=== PATIENT | male | born 1945 | race Caucasian/White ===

== ENCOUNTER 2018-05-19 14:30 | Emergency (ER) | payer OTHER ==
--- NOTE | 2018-05-19 14:58 | ED Physician Documentation ---
PD HPI HEENT - Stated complaint Stated Complaint: R SIDE LUMP NECK-PX/EAR NUMB - Chief complaint Chief Complaint: Heent - History obtained from History obtained from: Patient - History of Present Illness Timing - onset: How many weeks ago (2.5) Timing - details: Abrupt onset, Still present, Waxing and waning Pain level max: 0 Pain level now: 0 Location: Other (right side of neck/jaw) Improves: Ice Worsens: Other (nothing) Associated symptoms: Swollen nodes, Other (right ear numb). No: Fever, Congestion, Rhinorrhea, Trismus, Unable to swallow, Facial swelling, Headache, Cough Similar symptoms before: Has not had sx before Recently seen: Not recently seen - Additional information Additional information: 73-year-old male with no past medical history but had multiple surgeries due to injury such as right knee pins and right leg christy here with complaint of lump on the right side of his neck by the jaw. Patient stated he initially noticed this 2-1/2 weeks ago when he woke up with this lump. He applied ice and swelling disappeared. 3 days ago it happened again and ice decreased the lump. Last night the lump came back but very small size and when he woke up this morning the lump is big like before and this time his right ear feels numb. Patient denies any fever, trouble swallowing, excessive salivation, sorethroat, neck pain, chest pain, or shortness of breath.Denies any trauma, travel, sick contact or recent illness. 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 Review of Systems Ten Systems: 10 systems reviewed and negative Constitutional: denies: Fever, Chills, Myalgias Ears: denies: Loss of hearing, Ear pain, Drainage/discharge, Tinnitus/ringing, Foreign body Nose: denies: Rhinorrhea / runny nose, Congestion, Epistaxis, Sinus pressure / pain, Foreign Body Throat: denies: Dental pain / toothache, Oral lesions / sores, Sore throat, Swollen tonsils, Swallowed foreign body Cardiac: denies: Chest pain / pressure, Palpitations Respiratory: denies: Dyspnea, Cough GI: denies: Abdominal Pain, Nausea, Vomiting Skin: denies: Rash, Lesions Musculoskeletal: denies: Neck pain, Back pain Neurologic: denies: Generalized weakness, Numbness, Difficulty speaking, Headache PD PAST MEDICAL HISTORY - Past Medical History Past Medical History: No Cardiovascular: None Respiratory: None Neuro: None Endocrine/Autoimmune: None GI: None : None HEENT: None Psych: None Musculoskeletal: None Derm: None - Past Surgical History Past Surgical History: Yes Ortho: Knee replacement, Shoulder arthroplasty, Arthroscopic surgery - Allergies Allergies/Adverse Reactions: Allergies Allergy/AdvReac Type Severity Reaction Status Date / Time No Known Drug Allergies Allergy Verified 05/19/18 14:37 - Social History Does the pt smoke?: No Smoking Status: Never smoker Does the pt drink ETOH?: Yes Does the pt have substance abuse?: No - Immunizations Immunizations are current?: Yes - POLST Patient has POLST: No PD ED PE NORMAL - Vitals Vital signs reviewed: Yes - General General: Alert and oriented X 3, No acute distress, Well developed/nourished - HEENT HEENT: Atraumatic, PERRL, EOMI, Ears normal, Moist mucous membranes, Pharynx benign, Dentition benign, Other (A hard non-tender lump size of a golf ball located at the right side of the neck below the angle of the jaw.No erythema. No increase in warmth. No fluctuance.) - Neck Neck: Supple, no meningeal sign, Other (Nontender adenopathy submental and bilateral anterior cervical lymph nodes) - Cardiac Cardiac: RRR, No murmur - Respiratory Respiratory: No respiratory distress, Clear bilaterally - Abdomen Abdomen: Normal bowel sounds, Soft, Non tender, Non distended - Back Back: No CVA TTP - Derm Derm: Normal color, Warm and dry, No rash - Extremities Extremities: No deformity, Normal ROM s pain - Neuro Neuro: Alert and oriented X 3, Normal speech - Psych Psych: Normal mood, Normal affect Results - Vitals Vitals: Vital Signs - 24 hr 05/19/18 14:33 Temperature 36.6 C Heart Rate 75 Respiratory 16 Rate Blood Pressure 184/102 H O2 Saturation 99 Oxygen O2 Source Room air - Labs Labs: Laboratory Tests 05/19/18 05/19/18 05/19/18 16:37 16:37 16:37 WBC 9.0 RBC 5.05 Hgb 16.0 Hct 46.5 MCV 92.0 MCH 31.7 H MCHC 34.4 RDW 13.1 Plt Count 325 MPV 6.7 L Neut # (Auto) 6.1 Lymph # (Auto) 1.7 [place] # (Auto) 0.9 Eos # (Auto) 0.2 Baso # (Auto) 0.1 Absolute Nucleated RBC 0.00 Nucleated RBC % 0.0 Sodium 136 Potassium 4.1 Chloride 103 Carbon Dioxide 24 Anion Gap 9.0 BUN 23 H Creatinine 0.8 Estimated GFR (MDRD) 94 Glucose 103 H Calcium 8.9 Total Bilirubin 0.5 AST 19 ALT 15 Alkaline Phosphatase 79 Total Protein 7.3 Albumin 4.1 Globulin 3.2 Albumin/Globulin Ratio 1.3 Lipase 30 TSH 2.55 Free T4 0.69 Thyroxine (T4) 7.16 PD MEDICAL DECISION MAKING - ED course Complexity details: reviewed results, re-evaluated patient, considered differential (Salivary gland duct stone and obstruction, parotitis, mass or tumor, thyroid disease), d/w patient ED course: 1643 patient playing with his smart phone in no acute distress and nontoxic- appearing. 1757 patient inform of labs. He had just returned from CT scan. Case discussed with Evening Dr. Nichols and was introduced with the patient. Departure - Departure Clinical Impression: Neck mass Condition: Stable
[2018-05-19] MEDS ORDERED: IOVERSOL 320 100 ML VIAL IVP ONE ×3 (15:05→17:43)
[2018-05-19 16:44] LABS: BASOPHILS # (AUTO) 0.1 10^3/uL (0.0-0.1); EOSINOPHILS # (AUTO) 0.2 10^3/uL (0.0-0.7); EOSINOPHILS % (AUTO) 2.5 %; LYMPHOCYTES # (AUTO) 1.7 10^3/uL (1.5-3.5); MEAN CORPUSCULAR HEMOGLOBIN 31.7 pg (27.0-31.0); MEAN CORPUSCULAR HGB CONC 34.4 g/dL (32.0-36.0); MEAN PLATELET VOLUME 6.7 fL (7.4-11.4); MONOCYTES # (AUTO) 0.9 10^3/uL (0.0-1.0); MONOCYTES % (AUTO) 10.4 %; NEUTROPHILS # (AUTO) 6.1 10^3/uL (1.5-6.6); NEUTROPHILS % (AUTO) 67.1 %; PLT - PLATELET COUNT 325 10^3/uL (130-450); RED BLOOD COUNT 5.05 10^6/uL (4.70-6.10); RED CELL DISTRIBUTION WIDTH 13.1 % (12.0-15.0)
[2018-05-19 16:58] LABS: ALBUMIN 4.1 g/dL (3.2-5.5); ALBUMIN/GLOBULIN RATIO 1.3 (1.0-2.2); BILIRUBIN,TOTAL 0.5 mg/dL (0.2-1.0); CALCIUM 8.9 mg/dL (8.5-10.3); CREATININE 0.8 mg/dL (0.6-1.2); TOTAL PROTEIN 7.3 g/dL (6.7-8.2)
[2018-05-19 17:12] LABS: T4 (THYROXINE) 7.16 ug/dL (6.09-12.23)
[2018-05-19 17:16] LABS: THYROID STIMULATING HORMONE 2.55 uIU/mL (0.34-5.60)
[2018-05-19 17:18] LABS: FREE T4 (FREE THYROXINE) 0.69 ng/dL (0.58-1.64)
--- NOTE | 2018-05-19 18:46 | CT Report ---
Reason: right hard lump on lateral neck below the jaw Procedure Date: 05/19/2018 Accession Number: [id number] / [id number] Procedure: CT - Neck Soft Tissue W/ CPT Code: FULL RESULT: EXAM: CT SOFT TISSUE NECK WITH CONTRAST. EXAM DATE: 05/19/2018 05:30 PM. HISTORY: 73-year-old male, hard lump lateral right neck below the jaw. COMPARISONS: None. TECHNIQUE: Routine soft tissue neck CT protocol. Reconstructions: Coronal and sagittal. IV contrast: 80 cc Optiray 320. In accordance with CT protocol optimization, one or more of the following dose reduction techniques were utilized for this exam: automated exposure control, adjustment of mA and/or KV based on patient size, or use of iterative reconstructive technique. FINDINGS: Visualized Intracranial Contents: Unremarkable. Orbits: Symmetric and unremarkable. Sinuses: Visualized paranasal sinuses and mastoid air cells are clear. Oral cavity: Abnormal enhancing soft tissue mass involving the left base of tongue and extending to the left intrinsic tongue musculature and inferiorly to left aspect of the vallecula, measuring maximally 2.4 x 2.4 x 3.1 cm (series 3 image 63, series 6 image 34), highly concerning for malignancy, particularly squamous cell carcinoma. Pharynx : Pharyngeal mucosa is unremarkable. The infratemporal fossa, parapharyngeal spaces, and retropharyngeal space are unremarkable. The base of the tongue is symmetric and unremarkable. The airway is patent. Larynx: Larynx and supraglottic airway are patent without mass lesion. Vocal cords are symmetric. The visualized trachea is unremarkable. Parotid and Submandibular Glands: Symmetric and unremarkable. Lymph Nodes: Large centrally necrotic mass centered at the right level 2 measuring 5.9 x 4.5 x 5.5 cm (series 3 image 68, series 6 image 68), highly concerning for conglomeration of metastatic nodes. Additional enlarged nodes, also highly concerning for metastatic nodes, include left level 2A node measuring 2.8 x 1.8 cm (series 3 image 52), also with central necrosis, left level 1B node measuring 1.7 x 1.3 cm (series 3 image 58) Soft tissues: Soft tissues are unremarkable. No mass lesion or abnormal enhancement. Vascular Structures: Unremarkable. Thyroid Gland: Normal. Lung: The visualized lung apices are clear. Bones: No evidence of acute fracture or malalignment. There are mild degenerative changes. Other: None. IMPRESSION: 1. Abnormal enhancing soft tissue mass involving the left base of tongue and extending to the left intrinsic tongue musculature and inferiorly to left aspect of the vallecula, measuring maximally 2.4 x 2.4 x 3.1 cm (series 3 image 63, series 6 image 34), highly concerning for malignancy, particularly squamous cell carcinoma. Recommend ENT consultation. 2. Large centrally necrotic mass centered at the right level 2 measuring 5.9 x 4.5 x 5.5 cm (series 3 image 68, series 6 image 68), highly concerning for conglomeration of metastatic nodes. Additional enlarged nodes, also highly concerning for metastatic nodes, include left level 2A node measuring 2.8 x 1.8 cm (series 3 image 52), also with central necrosis, and left level 1B node measuring 1.7 x 1.3 cm (series 3 image 58) RADIA
--- NOTE | 2018-05-19 19:07 | ED Physician Documentation ---
History of Present Illness - Stated complaint Stated Complaint: R SIDE LUMP NECK-PX/EAR NUMB - Chief complaint Chief Complaint: Heent PD PAST MEDICAL HISTORY - Past Medical History Past Medical History: No Cardiovascular: None Respiratory: None Neuro: None Endocrine/Autoimmune: None GI: None : None HEENT: None Psych: None Musculoskeletal: None Derm: None - Past Surgical History Past Surgical History: Yes Ortho: Knee replacement, Shoulder arthroplasty, Arthroscopic surgery - Allergies Allergies/Adverse Reactions: Allergies Allergy/AdvReac Type Severity Reaction Status Date / Time No Known Drug Allergies Allergy Verified 05/19/18 14:37 - Social History Does the pt smoke?: No Smoking Status: Never smoker Does the pt drink ETOH?: Yes Does the pt have substance abuse?: No - Immunizations Immunizations are current?: Yes - POLST Patient has POLST: No Results - Vitals Vitals: Vital Signs - 24 hr 05/19/18 05/19/18 14:33 19:11 Temperature 36.6 C Heart Rate 75 76 Respiratory 16 18 Rate Blood Pressure 184/102 H 220/114 H O2 Saturation 99 99 Oxygen O2 Source Room air - Labs Labs: Laboratory Tests 05/19/18 05/19/18 05/19/18 16:37 16:37 16:37 WBC 9.0 RBC 5.05 Hgb 16.0 Hct 46.5 MCV 92.0 MCH 31.7 H MCHC 34.4 RDW 13.1 Plt Count 325 MPV 6.7 L Neut # (Auto) 6.1 Lymph # (Auto) 1.7 [place] # (Auto) 0.9 Eos # (Auto) 0.2 Baso # (Auto) 0.1 Absolute Nucleated RBC 0.00 Nucleated RBC % 0.0 Sodium 136 Potassium 4.1 Chloride 103 Carbon Dioxide 24 Anion Gap 9.0 BUN 23 H Creatinine 0.8 Estimated GFR (MDRD) 94 Glucose 103 H Calcium 8.9 Total Bilirubin 0.5 AST 19 ALT 15 Alkaline Phosphatase 79 Total Protein 7.3 Albumin 4.1 Globulin 3.2 Albumin/Globulin Ratio 1.3 Lipase 30 TSH 2.55 Free T4 0.69 Thyroxine (T4) 7.16 PD MEDICAL DECISION MAKING - ED course ED course: Took signout from Dr. Dominguez. See her note for history and physical. Briefly this is a gentleman who has had a progressive right-sided neck mass. 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 Spoke with Dr. Nik Castillo, ENT in [place]. He is unsure if they take his insurance but encouraged the patient to call in the morning. I also called [facility] to see if I could get a hold of anyone. However those phone calls really did not go to anyone useful. Departure - Departure Disposition: Home, Self Care Clinical Impression: Neck mass, Oropharyngeal cancer Condition: Stable Record reviewed to determine appropriate education?: Yes Comments: Tomorrow start by calling Dr. Castillo's office. I gave you the phone number on the piece of paper with his information on it. He is pretty sure they take veterans choice, but the office staff will be able to tell you for sure. If they do not take your insurance, the next step would be to call the [place] [facility] [place], their phone number is [phone] to make an expedited appointment. Your blood pressure was elevated today on check into the emergency department. This does not mean that you have hypertension, it is a common phenomenon to come to the emergency department and have elevated blood pressure. I recommend that you see your primary care physician within the week to have it rechecked when you are feeling better.
[2018-05-19 19:16] VITALS: BP 220/114
== END 2018-05-19 19:34 | disposition home or self-care (01) ==
LOC: ED 14:30
DX: C10.9 Malignant neoplasm of oropharynx, unspecified (principal); R59.0 Localized enlarged lymph nodes; R03.0 Elevated blood-pressure reading, without diagnosis of hypertension; F17.290 Nicotine dependence, other tobacco product, uncomplicated
CPT/HCPCS: 36415; 70491; 80053; 83690; 84436; 84439; 84443; 85025; 99283; Q9967

== ENCOUNTER 2019-12-05 01:55 | Outpatient (CLI) | payer OTHER | END 2019-12-05 01:56 | disposition critical access hospital (66) | LOC: EMS 01:55 | PROVIDERS: ATTEND Surgery | DX: M54.9 Dorsalgia, unspecified (principal); R53.1 Weakness; R11.0 Nausea; R06.00 Dyspnea, unspecified | CPT/HCPCS: A0425; A0429 ==

== ENCOUNTER 2019-12-05 14:50 | Outpatient (CLI) | payer OTHER | END 2019-12-05 14:51 | disposition short-term general hospital (02) | LOC: EMS 14:50 | PROVIDERS: ATTEND Surgery | DX: R06.02 Shortness of breath (principal); R07.9 Chest pain, unspecified | CPT/HCPCS: A0425; A0426 ==